=== PATIENT | female | born 1940 | race Caucasian/White ===

== ENCOUNTER 2021-04-14 00:35 | Outpatient (CLI) | payer MEDICARE, BC, SELFPAY ==
[2021-04-14] MEDS: Omnipaque 350 MG/ML 50 ML BTL IJ (09:16)
[2021-04-14] MEDS: Breeza Beverage 473 ML BTL PO (09:16)
--- NOTE | 2021-04-14 11:10 | DI.CT_ITS ---
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 TECHNIQUE: Imaging Protocol: Axial computed tomography images with coronal and sagittal reformatted images were created and reviewed CONTRAST MATERIAL: Intravenous: Omnipaque 350 Contrast volume:100 ml Oral: yes COMPARISON: CT CT CHEST ABDOMEN PELVIS W CONTRAST (GENERIC) from 01/11/2021 FINDINGS: CHEST: Tracheobronchial tree: Patent where visualized. Mediastinum and April: No dominant adenopathy or fluid collection. Pulmonary parenchyma: Compressive atelectasis right lung base. Chronic reticular densities greatest at the left lung base. No consolidation or dominant measurable mass. No pulmonary nodules. Pleura: Increased size of right pleural effusion, still moderate in size. Decreased size of left ple ural effusion, now trace. No pneumothorax. Lymph nodes: Within normal limits. Aorta: Thoracic portion non-dilated. Mild atherosclerotic changes. Heart: Left atrial and left ventricular enlargement. Bones: Degenerative disc changes.. No lytic or blastic lesions. Port overlying right chest with tip at the cavoatrial junction. Soft tissues: Diffuse body wall edema. ABDOMEN: Liver: Normal density. No measurable mass. Gallbladder and biliary tract: No radiodense calculus or dilation. Pancreas: Normal density, no abnormal calcifications or inflammatory process. Spleen: Normal. Kidneys: Normal size, contour and axis. No radiodense stones or obstructive uropathy. No masses seen. 5 millimeter cyst near the lower pole of the left kidney. Adrenal glands: Stable appearance left adrenal nodule. Aorta: Abdominal portion non-dilated. Atherosclerotic changes. Lymph nodes: Within normal limits. Soft tissues: Anasarca. PELVIS: Bladder: Symmetric distention, no gross wall thickening. Tiny amount of air, presumably post instrum entation. Bowel: Severe sigmoid diverticulosis. No obstruction or bowel wall thickening. Peritoneal cavity: Large quantity of ascites, not visibly changed. No visible omental caking. Bones: Stable appearance of compression deformity superior endplate L2. Degenerative changes.. Reproductive organs: Calcified poor fibroids. Ovaries not well seen due to pelvic ascites. IMPRESSION: 1. Increase in size of right pleural effusion. Decreased size left pleural effusion. 2. Stable ascites. Stable mild anasarca. 3. Stable left adrenal nodule. RADIATION DOSE DELIVERED: 1,487.93mGy.cm Total DLP DATA REPOSITORY: All CT scans at this facility are submitted to the National Radiology Data Registry (NRDR) Dose Index Registry (DIR) with the [employer] ([employer]). RADIATION OPTIMIZATION: All CT scans at this facility use at least one of these dose optimization te chniques: automated exposure control; mA and/or kV adjustment per patient size (includes targeted exa ms where dose is matched to clinical indication); or iterative reconstruction.
[2021-04-14] MEDS: Omnipaque 350 MG/ML 100 ML BTL IJ (11:16)
[2021-04-14] MEDS: Normal Saline Flush 10 ML SYR IVP (11:17)
== END 2021-04-14 00:55 ==
PROVIDERS: PCP Internal Medicine; Visit Provider Obstetrics & Gynecology Gynecologic Oncology
DX: J90 Pleural effusion, not elsewhere classified (principal); R18.8 Other ascites; J98.11 Atelectasis; C57.7 Malignant neoplasm of other specified female genital organs
CPT/HCPCS: 74177; 71260; J3490; Q9967